=== PATIENT | male | born 1995 | race Caucasian/White ===

== ENCOUNTER 2020-09-11 15:47 | Emergency (ER) | payer SELFPAY ==
[2020-09-11] MEDS ORDERED: Metoclopramide HCl 10 MG/2 ML VIAL ONE (16:08)
[2020-09-11] MEDS ORDERED: diphenhydrAMINE 50 MG/ML VIAL ONE (16:08)
[2020-09-11] MEDS ORDERED: Metoclopramide 10 MG/10 ML UDCUP ONE (16:08)
[2020-09-11] MEDS ORDERED: Acetaminophen 500 MG TAB ONE (16:08)
--- NOTE | 2020-09-11 16:28 | CT ---
CT BRAIN WITHOUT CONTRAST: HISTORY: Traumatic headache, vomiting, severe headache FINDINGS: No evidence of acute infarct, hemorrhage, midline shift or abnormal extra-axial fluid collections is seen. The ventricular size is appropriate and the basilar cisterns are patent. No acute calvarial fracture is seen. There is a prominent arachnoid granulation versus old wild hole in the left frontal bone.. The visualized paranasal sinuses and mastoid air cells are well aerated. IMPRESSION: No CT evidence of acute intracranial process.
[2020-09-11] MEDS ORDERED: Ondansetron PF 4 MG/2 ML Vial ONE (17:08)
== END 2020-09-11 17:41 | disposition home or self-care (01) ==
LOC: ERS 15:47
DX: S06.0X0A Concussion without loss of consciousness, initial encounter (principal); R11.2 Nausea with vomiting, unspecified; W21.9XXA Striking against or struck by unspecified sports equipment, initial encounter
CPT/HCPCS: 70450; 96365; 96375; J1200; J2405; J2765